=== PATIENT | female | born 1980 | race African-American/Black ===

== ENCOUNTER 2017-07-24 19:03 | Emergency (ER) | payer OTHER ==
[~2017-07-24] VITALS: Ht 175.3 cm; Wt 74.0 kg
[~2017-07-24 19:03] MED LIST: NOHOMEMEDS
[2017-07-24] MEDS ORDERED: PREDNISONE50 MG PO (21:26)
[2017-07-24 21:44] VITALS: BP 115/65
== END 2017-07-24 21:44 | disposition home or self-care (01) ==
LOC: EME 19:03
DX: T78.00XA Anaphylactic reaction due to unspecified food, initial encounter (principal)
CPT/HCPCS: 99281; 99284